=== PATIENT | female | born 1990 | race African-American/Black ===

== ENCOUNTER 2020-07-11 10:42 | Emergency (ER) | payer OTHER ==
[2020-07-11 11:30] LABS: BASO % 0.8 % (0-2.0); EOS % 1.1 % (0-4.5); HEMATOCRIT 39.4 % (32.4-45.2); HEMOGLOBIN 13.3 GM/dL (10.7-15.3); LYMPH % 25.7 % (8-40); MCH 28.1 pg (25.7-33.7); MCHC 33.7 g/dl (32.0-36.0); MEAN CELL VOLUME 83.5 fl (80-96); MEAN PLT VOLUME 8.3 fl (7.5-11.1); MONO % 6.6 % (3.8-10.2); NEUT % 65.8 % (42.8-82.8); PLATELET COUNT 280 K/MM3 (134-434); RBC 4.72 M/mm3 (3.60-5.2); RDW 13.3 % (11.6-15.6)
[2020-07-11 11:36] LABS: INR 1.01 (0.83-1.09); PROTHROMBIN TIME (PATIENT) 12.2 SEC (9.7-13.0)
[2020-07-11 11:39] LABS: ACTIVATED PTT 31.3 SECONDS (25.2-36.5)
[2020-07-11 11:43] LABS: ALBUMIN 3.5 g/dl (3.4-5.0); CALCIUM 8.8 mg/dL (8.5-10.1)
[2020-07-11 11:44] VITALS: TEMP 97.5; BMI 38.0
[2020-07-11 11:46] LABS: CREATININE 0.7 mg/dL (0.55-1.3)
[2020-07-11 11:48] LABS: BILIRUBIN,TOTAL 0.3 mg/dL (0.2-1); TOT PROT 7.4 g/dl (6.4-8.2)
[2020-07-11 12:11] LABS: EPI CELLS >36 /uL (0-25.1); HYALINE CASTS 1 /uL (0-3.1); PH,URINE 5.5 (5.0-8.0); URINE APPEARANCE CLOUDY; URINE BACTERIA 1314 /uL (0-1359); URINE BILIRUBIN NEGATIVE (NEGATIVE); URINE COLOR ORANGE; URINE GLUCOSE (UA) NEGATIVE (NEGATIVE); URINE KETONE NEGATIVE (NEGATIVE); URINE LEUK ESTERASE NEGATIVE (NEGATIVE); URINE NITRITE NEGATIVE (NEGATIVE); URINE PROTEIN TRACE (NEGATIVE); URINE RBC 6 /uL (0-23.9); URINE UROBILINOGEN 0.2 mg/dL (0.2-1.0); URINE WBC 19 /uL (0-25.8)
[2020-07-11] MEDS ORDERED: ACETAMINOPHEN 1000 MG/100 ML VIAL (NON FORMULARY) IVPB ONE (14:58)
[2020-07-11] MEDS ORDERED: ACETAMINOPHEN INJECTION 100 ML IVPB ONE (15:00)
[2020-07-11] MEDS ORDERED: KETOROLAC TROMETHAMINE 30 MG/1 ML VIAL IVPUSH ONE (16:12)
[2020-07-11] MEDS ORDERED: diazePAM 2 MG TABLET PO ONE (16:14)
[2020-07-11] MEDS ORDERED: KETOROLAC TROMETHAMINE 30 MG/1 ML VIAL ONE (16:19)
[2020-07-11] MEDS ORDERED: diazePAM 2 MG TABLET ONE (16:22)
[2020-07-11 17:24] VITALS: BP 133/84; PULSE 84
== END 2020-07-11 17:20 | disposition home or self-care (01) ==
LOC: JER 10:42
PROC: 3E0333Z Introduction of Anti-inflammatory into Peripheral Vein, Percutaneous Approach (ICD-10-PCS; principal; 2020-07-11)
PROC: 3E0333Z Introduction of Anti-inflammatory into Peripheral Vein, Percutaneous Approach (ICD-10-PCS; 2020-07-11)
DX: N83.202 Unspecified ovarian cyst, left side (principal); S39.012A Strain of muscle, fascia and tendon of lower back, initial encounter
CPT/HCPCS: 36415; 74176-TC; 76830-TC; 80053; 81003; 84703; 85025; 85610; 85730; 86850; 86900; 86901; 87086; 93005; 93010; 99285-25; J0131

== ENCOUNTER 2020-09-08 10:52 | Emergency (ER) | payer OTHER ==
[2020-09-08 11:15] VITALS: PULSE 95; BMI 39.0
[2020-09-08] MEDS ORDERED: morphine CARPU-JECT 4 MG/1 ML DISP.SYRIN IVPUSH ONE (11:27)
[2020-09-08] MEDS ORDERED: LACTATED RINGERS SOLUTION 1,000 ML IV STA (11:27)
[2020-09-08] MEDS ORDERED: ONDANSETRON 4 MG/2 ML VIAL IVPUSH ONE (11:27)
[2020-09-08] MEDS ORDERED: morphine SULFATE 4 MG/ML VIAL ONE (11:29)
[2020-09-08] MEDS ORDERED: ONDANSETRON 4 MG/2 ML VIAL ONE (11:34)
[2020-09-08 12:06] LABS: BASO % 0.4 % (0-2.0); EOS % 0.7 % (0-4.5); HEMATOCRIT 38.7 % (32.4-45.2); HEMOGLOBIN 12.8 GM/dL (10.7-15.3); LYMPH % 11.8 % (8-40); MCH 26.6 pg (25.7-33.7); MEAN CELL VOLUME 80.7 fl (80-96); MEAN PLT VOLUME 8.3 fl (7.5-11.1); MONO % 4.5 % (3.8-10.2); NEUT % 82.6 % (42.8-82.8); PLATELET COUNT 260 10^3/uL (134-434); RBC 4.79 M/mm3 (3.60-5.2); WHITE BLOOD COUNT 11.1 K/mm3 (4.0-10.0)
[2020-09-08 12:15] LABS: INR 0.93 (0.83-1.09); PROTHROMBIN TIME (PATIENT) 11.3 SEC (9.7-13.0)
[2020-09-08 12:17] LABS: ACTIVATED PTT 28.2 SECONDS (25.2-36.5)
[2020-09-08 12:26] LABS: ALBUMIN 3.5 g/dl (3.4-5.0); BLOOD UREA NITROGEN 16.2 mg/dL (7-18); CALCIUM 8.8 mg/dL (8.5-10.1)
[2020-09-08 12:29] LABS: CREATININE 0.8 mg/dL (0.55-1.3)
[2020-09-08 12:31] LABS: BILIRUBIN,TOTAL 0.3 mg/dL (0.2-1); TOT PROT 7.2 g/dl (6.4-8.2)
[2020-09-08 12:54] LABS: EPI CELLS >36 /uL (0-25.1); HYALINE CASTS 1 /uL (0-3.1); PH,URINE 5.5 (5.0-8.0); URINE APPEARANCE CLEAR; URINE BACTERIA 763 /uL (0-1359); URINE BILIRUBIN NEGATIVE (NEGATIVE); URINE COLOR YELLOW; URINE GLUCOSE (UA) NEGATIVE (NEGATIVE); URINE KETONE TRACE (NEGATIVE); URINE LEUK ESTERASE 1+ (NEGATIVE); URINE NITRITE NEGATIVE (NEGATIVE); URINE PROTEIN NEGATIVE (NEGATIVE); URINE RBC 5 /uL (0-23.9); URINE UROBILINOGEN 0.2 mg/dL (0.2-1.0); URINE WBC 66 /uL (0-25.8)
[2020-09-08] MEDS ORDERED: CEFTRIAXONE 1,000 MG in DEXTROSE 5%-WATER - 50 ML IVPB ONE (13:39)
[2020-09-08] MEDS ORDERED: CEFTRIAXONE 1 GM/50 ML BAG ONE (17:04)
[2020-09-08] MEDS ORDERED: KETOROLAC TROMETHAMINE 15 MG/ML VIAL IVPUSH ONE (17:52)
[2020-09-08] MEDS ORDERED: KETOROLAC TROMETHAMINE 15 MG/ML VIAL ONE (18:22)
[2020-09-08 18:36] VITALS: BP 117/66; TEMP 98.2
== END 2020-09-08 18:50 | disposition home or self-care (01) ==
LOC: JER 10:52
PROC: 3E03329 Introduction of Other Anti-infective into Peripheral Vein, Percutaneous Approach (ICD-10-PCS; principal; 2020-09-08)
PROC: 3E033GC Introduction of Other Therapeutic Substance into Peripheral Vein, Percutaneous Approach (ICD-10-PCS; 2020-09-08)
PROC: 3E0333Z Introduction of Anti-inflammatory into Peripheral Vein, Percutaneous Approach (ICD-10-PCS; 2020-09-08)
PROC: 3E033NZ Introduction of Analgesics, Hypnotics, Sedatives into Peripheral Vein, Percutaneous Approach (ICD-10-PCS; 2020-09-08)
PROC: 3E033GC Introduction of Other Therapeutic Substance into Peripheral Vein, Percutaneous Approach (ICD-10-PCS; 2020-09-08)
DX: N83.201 Unspecified ovarian cyst, right side (principal); K64.9 Unspecified hemorrhoids; N39.0 Urinary tract infection, site not specified
CPT/HCPCS: 36415; 74174-TC; 76830-TC; 80053; 81003; 82272; 83605; 83690; 84703; 85025; 85610; 85730; 86850; 86900; 86901; 87086; 93005; 93010; 99285-25; Q9967

== ENCOUNTER 2020-11-02 21:11 | Emergency (ER) | payer OTHER ==
[2020-11-02 21:39] VITALS: BP 145/90; PULSE 89; TEMP 98.4; BMI 33.4
[2020-11-02] MEDS ORDERED: AZITHROMYCIN 500 MG TABLET PO ONE (21:59)
[2020-11-02] MEDS ORDERED: AZITHROMYCIN 250 MG TABLET ONE (22:15)
== END 2020-11-02 22:53 | disposition home or self-care (01) ==
LOC: JER 21:11
DX: J18.9 Pneumonia, unspecified organism (principal); Z11.52 Encounter for screening for COVID-19
CPT/HCPCS: 71045-TC-FY; 99284-25; C9803; U0003; U0005

== ENCOUNTER 2020-11-08 21:01 | Emergency (ER) | payer OTHER ==
[2020-11-08 21:17] VITALS: BP 113/60; BMI 39.5
[2020-11-08] MEDS ORDERED: KETOROLAC TROMETHAMINE 30 MG/1 ML VIAL IM ONE (22:09)
[2020-11-08 22:33] VITALS: PULSE 78
[2020-11-08] MEDS ORDERED: KETOROLAC TROMETHAMINE 30 MG/1 ML VIAL ONE (22:34)
[2020-11-08 22:53] VITALS: TEMP 98
== END 2020-11-08 22:45 | disposition home or self-care (01) ==
LOC: JERFT 21:01 → JER 21:01
PROC: 3E0233Z Introduction of Anti-inflammatory into Muscle, Percutaneous Approach (ICD-10-PCS; principal; 2020-11-08)
DX: R07.9 Chest pain, unspecified (principal)
CPT/HCPCS: 71046-TC-FY; 93005; 93010; 99284-25

== ENCOUNTER 2021-03-20 06:01 | Emergency (ER) | payer OTHER ==
[2021-03-20 06:09] VITALS: BP 114/74; PULSE 83; TEMP 98.4; BMI 36.5
[2021-03-20] MEDS ORDERED: morphine CARPU-JECT 4 MG/1 ML DISP.SYRIN IVPUSH ONE (06:22)
[2021-03-20] MEDS ORDERED: ONDANSETRON 4 MG/2 ML VIAL IVPUSH ONE (06:22)
[2021-03-20] MEDS ORDERED: morphine SULFATE 4 MG/ML VIAL ONE (06:29)
[2021-03-20] MEDS ORDERED: ONDANSETRON 4 MG/2 ML VIAL ONE (06:29)
[2021-03-20 07:43] LABS: BASO % 0.5 % (0-2.0); HEMATOCRIT 37.9 % (32.4-45.2); HEMOGLOBIN 12.2 GM/dL (10.7-15.3); LYMPH % 22.4 % (8-40); MCH 25.8 pg (25.7-33.7); MCHC 32.2 g/dl (32.0-36.0); MEAN CELL VOLUME 80.2 fl (80-96); MEAN PLT VOLUME 7.9 fl (7.5-11.1); MONO % 6.1 % (3.8-10.2); PLATELET COUNT 317 10^3/uL (134-434); RBC 4.72 M/mm3 (3.60-5.2); RDW 15.1 % (11.6-15.6); WHITE BLOOD COUNT 9.9 K/mm3 (4.0-10.0)
[2021-03-20 07:50] LABS: INR 1.08 (0.83-1.09); PROTHROMBIN TIME (PATIENT) 12.4 SEC (9.7-13.0)
[2021-03-20 07:52] LABS: ACTIVATED PTT 30.6 SECONDS (25.2-36.5)
[2021-03-20 07:55] LABS: CALCIUM 8.9 mg/dL (8.5-10.1)
[2021-03-20 07:56] LABS: ALBUMIN 3.5 g/dl (3.4-5.0)
[2021-03-20 07:59] LABS: CREATININE 0.7 mg/dL (0.55-1.3)
[2021-03-20 08:00] LABS: BILIRUBIN,TOTAL 0.2 mg/dL (0.2-1)
[2021-03-20] MEDS ORDERED: KETOROLAC TROMETHAMINE 30 MG/1 ML VIAL IVPUSH ONE (08:44)
[2021-03-20] MEDS ORDERED: KETOROLAC TROMETHAMINE 30 MG/1 ML VIAL ONE (09:05)
[2021-03-20] MEDS ORDERED: SODIUM CHLORIDE 0.9% 500 ML INFUS.BAG IV ONE (09:42)
[2021-03-20] MEDS ORDERED: methylPREDNISolone NA SUCC 125 MG/2 ML VIAL IVPUSH ONE (09:50)
[2021-03-20] MEDS ORDERED: methylPREDNISolone NA SUCC 125 MG/2 ML VIAL ONE (10:08)
[2021-03-20 10:09] LABS: PH,URINE 6.5 (5.0-8.0); URINE APPEARANCE CLOUDY; URINE BILIRUBIN NEGATIVE (NEGATIVE); URINE COLOR YELLOW; URINE GLUCOSE (UA) NEGATIVE (NEGATIVE); URINE KETONE NEGATIVE (NEGATIVE); URINE LEUK ESTERASE NEGATIVE (NEGATIVE); URINE NITRITE NEGATIVE (NEGATIVE); URINE PROTEIN NEGATIVE (NEGATIVE); URINE UROBILINOGEN 0.2 mg/dL (0.2-1.0)
== END 2021-03-20 13:20 | disposition home or self-care (01) ==
LOC: JER 06:01
PROC: 3E033GC Introduction of Other Therapeutic Substance into Peripheral Vein, Percutaneous Approach (ICD-10-PCS; principal; 2021-03-20)
DX: R10.30 Lower abdominal pain, unspecified (principal)
CPT/HCPCS: 36415; 71045-TC-FY; 74177-TC; 76830-TC; 80053; 81003; 84703; 85025; 85610; 85730; 86850; 86900; 86901; 87086; 87491; 87591; 96374; 96375; 99285-25; C9803; U0003; U0005

== ENCOUNTER 2021-12-21 14:47 | Day surgery (SDC) | payer OTHER ==
[2021-12-21 15:37] VITALS: BMI 37.9
[2021-12-21 17:14] LABS: BASO % 0.4 % (0-2.0); EOS % 0.5 % (0-4.5); HEMATOCRIT 37.1 % (32.4-45.2); HEMOGLOBIN 12.5 GM/dL (10.7-15.3); LYMPH % 17.5 % (8-40); MCH 26.8 pg (25.7-33.7); MCHC 33.7 g/dl (32.0-36.0); MEAN CELL VOLUME 79.4 fl (80-96); MEAN PLT VOLUME 8.2 fl (7.5-11.1); MONO % 6.4 % (3.8-10.2); NEUT % 75.2 % (42.8-82.8); PLATELET COUNT 294 10^3/uL (134-434); RBC 4.67 M/mm3 (3.60-5.2); RDW 14.7 % (11.6-15.6); WHITE BLOOD COUNT 12.3 K/mm3 (4.0-10.0)
[2021-12-21 17:23] LABS: INR 1.09 (0.83-1.09); PROTHROMBIN TIME (PATIENT) 12.5 SEC (9.7-13.0)
[2021-12-21 17:36] LABS: CALCIUM 9.2 mg/dL (8.5-10.1)
[2021-12-21 17:40] LABS: CREATININE 0.5 mg/dL (0.55-1.3)
[2021-12-21 17:41] LABS: BILIRUBIN,TOTAL 0.2 mg/dL (0.2-1); TOT PROT 7.2 g/dl (6.4-8.2)
[2021-12-21] MEDS ORDERED: DEXTROSE 5%-LACTATED RINGERS 1,000 ML IV SCH (22:00)
[2021-12-21] MEDS: INDOMETHACIN 25 MG CAPSULE PO SCH (23:10)
[2021-12-22] MEDS: INDOMETHACIN 25 MG CAPSULE PO SCH (05:41)
[2021-12-22] MEDS ORDERED: CLINDAMYCIN 600MG PREMIX IVPB 1,200 MG/100 ML BAG IVPB ONE (09:02)
[2021-12-22] MEDS ORDERED: oxyCODONE HCL 5 MG TABLET PO PRN (10:41)
[2021-12-22] MEDS ORDERED: ONDANSETRON 4 MG/2 ML VIAL IVPUSH PRN (10:41)
[2021-12-22] MEDS ORDERED: LACTATED RINGERS SOLUTION 1,000 ML IV SCH (10:45)
[2021-12-22] MEDS ORDERED: MIDAZOLAM HCL 2 MG/2 ML SINGLE DOSE VIAL ONE (10:51)
[2021-12-22] MEDS ORDERED: ONDANSETRON 4 MG/2 ML VIAL ONE (11:32)
[2021-12-22] MEDS ORDERED: KETAMINE HCL 500 MG/10 ML VIAL ONE (11:42)
[2021-12-22] MEDS ORDERED: ACETAMINOPHEN 1000 MG/100 ML BAG IVPB ONE ×3 (12:26→12:30)
[2021-12-22] MEDS ORDERED: ACETAMINOPHEN INJECTION 100 ML IVPB ONE (12:29)
[2021-12-22 13:05] VITALS: RESP 17
[2021-12-22 13:48] VITALS: BP 111/63; PULSE 85
[2021-12-22 13:50] VITALS: TEMP 98.6
[2021-12-22] MEDS ORDERED: INDOMETHACIN 25 MG CAPSULE PO SCH ×2 (14:15)
== END 2021-12-22 19:32 | disposition home or self-care (01) ==
LOC: JER 14:47 → JASUSAT 16:17 → J3W 20:28 → JASUSAT 12-22 19:32
PROVIDERS: ATTEND Obstetrics & Gynecology Maternal & Fetal Medicine
PROC: 0UVC7ZZ Restriction of Cervix, Via Natural or Artificial Opening (ICD-10-PCS; principal; 2021-12-21)
DX: O34.32 Maternal care for cervical incompetence, second trimester (principal); Z3A.21 21 weeks gestation of pregnancy; O26.872 Cervical shortening, second trimester
CPT/HCPCS: 0241U-QW; 36415; 80053; 84703; 85025; 85610; 86850; 86900; 86901; 94760; 99285-25

== ENCOUNTER 2022-04-01 07:47 | Inpatient (IN) | payer OTHER ==
[2022-04-01] MEDS ORDERED: BETAMET ACET/BETAMET NA PH 30 MG/5 ML VIAL IM ONE (08:55)
[2022-04-01] MEDS ORDERED: BETAMET ACET/BETAMET NA PH 30 MG/5 ML VIAL ONE (09:03)
[2022-04-01 09:21] LABS: URINE APPEARANCE CLEAR; URINE BILIRUBIN NEGATIVE (NEGATIVE); URINE COLOR YELLOW; URINE GLUCOSE (UA) NEGATIVE (NEGATIVE); URINE KETONE NEGATIVE (NEGATIVE); URINE LEUK ESTERASE NEGATIVE (NEGATIVE); URINE NITRITE NEGATIVE (NEGATIVE); URINE PROTEIN NEGATIVE (NEGATIVE); URINE UROBILINOGEN 0.2 mg/dL (0.2-1.0)
[2022-04-01] MEDS ORDERED: SODIUM CHLORIDE 1,000 ML IV ONE (09:45)
[2022-04-01] MEDS ORDERED: TERBUTALINE SULFATE 1 MG/1 ML VIAL SQ ONE ×2 (09:51→09:57)
[2022-04-01] MEDS ORDERED: DEXTROSE 5%-LACTATED RINGERS 1,000 ML IV SCH (10:15)
[2022-04-01 10:35] VITALS: BMI 40.3
[2022-04-01 11:59] LABS: BASO % 0.4 % (0-2.0); EOS % 0.4 % (0-4.5); HEMATOCRIT 34.6 % (32.4-45.2); HEMOGLOBIN 11.5 GM/dL (10.7-15.3); LYMPH % 17.3 % (8-40); MCH 25.9 pg (25.7-33.7); MCHC 33.2 g/dl (32.0-36.0); MEAN CELL VOLUME 78.2 fl (80-96); MEAN PLT VOLUME 8.7 fl (7.5-11.1); MONO % 3.7 % (3.8-10.2); NEUT % 78.2 % (42.8-82.8); PLATELET COUNT 221 10^3/uL (134-434); RBC 4.42 M/mm3 (3.60-5.2); RDW 14.6 % (11.6-15.6); WHITE BLOOD COUNT 12.9 K/mm3 (4.0-10.0)
[2022-04-01 12:46] LABS: ACTIVATED PTT 28.2 SECONDS (25.2-36.5); INR 1.1 (0.83-1.09); PROTHROMBIN TIME (PATIENT) 12.7 SEC (9.7-13.0)
[2022-04-01 13:01] LABS: CALCIUM 8.9 mg/dL (8.5-10.1)
[2022-04-01 13:02] LABS: ALBUMIN 2.5 g/dl (3.4-5.0); BLOOD UREA NITROGEN 6.8 mg/dL (7-18)
[2022-04-01 13:05] LABS: CREATININE 0.5 mg/dL (0.55-1.3)
[2022-04-01 13:07] LABS: BILIRUBIN,TOTAL 0.2 mg/dL (0.2-1); TOT PROT 6.2 g/dl (6.4-8.2)
[2022-04-01] MEDS ORDERED: NIFEdipine 10 MG CAPSULE (FP) ONE (13:52)
[2022-04-01] MEDS: NIFEdipine 10 MG CAPSULE (FP) PO SCH ×2 (13:57→22:06)
[2022-04-01] MEDS: DEXTROSE 5%-LACTATED RINGERS 1,000 ML IV SCH ×2 (15:16→22:08)
[2022-04-02] MEDS ORDERED: BETAMET ACET/BETAMET NA PH 30 MG/5 ML VIAL ONE (07:28)
[2022-04-02 07:41] LABS: BASO % 0.2 % (0-2.0); HEMATOCRIT 30.1 % (32.4-45.2); HEMOGLOBIN 10.2 GM/dL (10.7-15.3); LYMPH % 13.6 % (8-40); MCH 26.7 pg (25.7-33.7); MCHC 33.9 g/dl (32.0-36.0); MEAN CELL VOLUME 78.7 fl (80-96); MEAN PLT VOLUME 8.4 fl (7.5-11.1); MONO % 6.2 % (3.8-10.2); PLATELET COUNT 208 10^3/uL (134-434); RBC 3.82 M/mm3 (3.60-5.2); RDW 14.8 % (11.6-15.6); WHITE BLOOD COUNT 15.2 K/mm3 (4.0-10.0)
[2022-04-02] MEDS: DEXTROSE 5%-LACTATED RINGERS 1,000 ML IV SCH ×2 (08:00→14:34)
[2022-04-02] MEDS ORDERED: CITRIC ACID/SODIUM CITRATE 30 ML UNIT-DOSE CUP PO ONE (08:33)
[2022-04-02] MEDS ORDERED: morphine SULFATE/PF 1 MG/2 ML (2cc Syringe - QUVA) EP ONE (09:02)
[2022-04-02] MEDS ORDERED: ONDANSETRON 4 MG/2 ML VIAL IVPUSH PRN (09:02)
[2022-04-02] MEDS ORDERED: ACETAMINOPHEN 325 MG TABLET (FP) PO PRN ×2 (09:02→13:05)
[2022-04-02] MEDS ORDERED: morphine SULFATE (PF) 1 MG/2 ML SYRINGE ONE (09:07)
[2022-04-02] MEDS ORDERED: ceFAZolin SODIUM 1 GM VIAL ONE (09:08)
[2022-04-02] MEDS ORDERED: SODIUM CHLORIDE 0.9% P/F 10 ML VIAL IJ ONE (09:08)
[2022-04-02] MEDS ORDERED: TRIAMCINOLONE ACETONIDE 40 MG/ML 10 ML VIAL SQ ONE (09:09)
[2022-04-02] MEDS ORDERED: PHENYLEPHRINE HCL 10 MG/1 ML SINGLE DOSE VIAL ONE (09:21)
[2022-04-02] MEDS ORDERED: OXYTOCIN 10 UNITS/ML VIAL ONE ×2 (09:48→11:42)
[2022-04-02] MEDS ORDERED: PROPOFOL 20 ML ONE (10:08)
[2022-04-02] MEDS ORDERED: MIDAZOLAM HCL 2 MG/2 ML SINGLE DOSE VIAL ONE ×2 (10:36→10:48)
[2022-04-02] MEDS ORDERED: ONDANSETRON 4 MG/2 ML VIAL ONE (10:36)
[2022-04-02] MEDS ORDERED: FENTANYL CITRATE/PF 50 MCG/ML VIAL ONE ×3 (10:37→11:19)
[2022-04-02 11:02] LABS: CORD HCO3 22.1 mmHg (20-29); CORD PCO2 62.9 mmHg (30-78); CORD pH 7.164 (7.14-7.44)
[2022-04-02 11:05] LABS: CORD BASE EXCESS -6.9 mmol/L (0-2); CORD HCO3 19.1 mmHg (20-29); CORD PCO2 40.1 mmHg (30-78); CORD pH 7.295 (7.14-7.44)
[2022-04-02] MEDS ORDERED: METOPROLOL TARTRATE 5 MG/5 ML VIAL ONE (11:22)
[2022-04-02] MEDS ORDERED: KETAMINE HCL 500 MG/10 ML VIAL ONE (11:23)
[2022-04-02] MEDS: OXYTOCIN 20 UNITS in 0.9% NS 20 UNIT/1,000 ML INFUS.BAG IV SCH ×2 (14:00→22:34)
[2022-04-02] MEDS ORDERED: OXYTOCIN 20 UNITS in 0.9% NS 20 UNIT/1,000 ML INFUS.BAG IV ONE (14:03)
[2022-04-03 08:30] LABS: HEMATOCRIT 29.6 % (32.4-45.2); HEMOGLOBIN 10.1 GM/dL (10.7-15.3); MCH 26.4 pg (25.7-33.7); MEAN CELL VOLUME 77.9 fl (80-96); MEAN PLT VOLUME 8.4 fl (7.5-11.1); PLATELET COUNT 249 10^3/uL (134-434); RBC 3.81 M/mm3 (3.60-5.2); RDW 14.9 % (11.6-15.6); WHITE BLOOD COUNT 21.7 K/mm3 (4.0-10.0)
[2022-04-03 09:12] LABS: ANISOCYTOSIS 0; MACROCYTOSIS 0
[2022-04-03] MEDS: SIMETHICONE 80 MG TAB.CHEW (FP) PO PRN (09:12)
[2022-04-03] MEDS: FERROUS SO4 325 MG TABLET (FP) PO SCH ×2 (09:12→21:44)
[2022-04-03] MEDS: PRENATAL VITAMINS W/ FOLIC ACID TABLET (FP) PO SCH (09:12)
[2022-04-03] MEDS: oxyCODONE HCL 5 MG TABLET PO PRN (18:12)
[2022-04-03] MEDS ORDERED: diphenhydrAMINE HCL 25 MG CAPSULE (FP) PO ONE (21:47)
[2022-04-04] MEDS: oxyCODONE HCL 5 MG TABLET PO PRN (03:55)
[2022-04-04] MEDS: SIMETHICONE 80 MG TAB.CHEW (FP) PO PRN (04:01)
[2022-04-04] MEDS: FERROUS SO4 325 MG TABLET (FP) PO SCH ×2 (09:33→22:08)
[2022-04-04] MEDS: IBUPROFEN 600 MG TABLET (FP) PO PRN ×2 (09:33→22:08)
[2022-04-04] MEDS: PRENATAL VITAMINS W/ FOLIC ACID TABLET (FP) PO SCH (09:33)
[2022-04-04] MEDS: CEPHALEXIN MONOHYDRATE 500 MG CAPSULE (UD) PO SCH ×2 (10:34→22:08)
[2022-04-04] MEDS: DOCUSATE SODIUM 100 MG CAPSULE (FP) PO SCH ×2 (13:23→22:08)
[2022-04-04 23:25] VITALS: RESP 18
[2022-04-05] MEDS: IBUPROFEN 600 MG TABLET (FP) PO PRN ×2 (05:43→12:36)
[2022-04-05] MEDS: DOCUSATE SODIUM 100 MG CAPSULE (FP) PO SCH (05:43)
[2022-04-05 08:44] LABS: BASO % 0.2 % (0-2.0); EOS % 0.2 % (0-4.5); HEMATOCRIT 25.9 % (32.4-45.2); HEMOGLOBIN 8.6 GM/dL (10.7-15.3); LYMPH % 18.8 % (8-40); MCH 26.4 pg (25.7-33.7); MCHC 33.4 g/dl (32.0-36.0); MEAN CELL VOLUME 78.9 fl (80-96); MONO % 8.6 % (3.8-10.2); NEUT % 72.2 % (42.8-82.8); PLATELET COUNT 246 10^3/uL (134-434); RBC 3.28 M/mm3 (3.60-5.2); RDW 14.8 % (11.6-15.6); WHITE BLOOD COUNT 14.8 K/mm3 (4.0-10.0)
[2022-04-05] MEDS: PRENATAL VITAMINS W/ FOLIC ACID TABLET (FP) PO SCH (09:10)
[2022-04-05] MEDS: FERROUS SO4 325 MG TABLET (FP) PO SCH (09:10)
[2022-04-05 09:18] VITALS: BP 121/75; PULSE 103; TEMP 97.8
[2022-04-05] MEDS: CEPHALEXIN MONOHYDRATE 500 MG CAPSULE (UD) PO SCH (12:36)
[2022-04-06] MEDS ORDERED: PATIENT'S OWN MEDICATION (NON-FORMULARY) (Prenatal Vitamins (Sjr) - [Prenatal Vitamins (Sj PO SCH (10:00)
== END 2022-04-05 14:15 | disposition home or self-care (01) | DRG 540 ==
LOC: JDEL 07:47 → JLDR 09:40 → J3W 15:07 → JLDR 04-02 07:36 → J3W 04-02 14:38
PROVIDERS: ADMIT Obstetrics & Gynecology Maternal & Fetal Medicine; ATTEND Obstetrics & Gynecology Maternal & Fetal Medicine
PROC: 10D00Z1 Extraction of Products of Conception, Low, Open Approach (ICD-10-PCS; principal; 2022-04-02)
PROC: 0DNW0ZZ Release Peritoneum, Open Approach (ICD-10-PCS; 2022-04-02)
DX: O34.219 Maternal care for unspecified type scar from previous cesarean delivery (principal); O34.33 Maternal care for cervical incompetence, third trimester; O60.14X0 Preterm labor third trimester with preterm delivery third trimester, not applicable or unspecified; O10.92 Unspecified pre-existing hypertension complicating childbirth; O99.824 Streptococcus B carrier state complicating childbirth; O99.214 Obesity complicating childbirth; E66.01 Morbid (severe) obesity due to excess calories; N73.6 Female pelvic peritoneal adhesions (postinfective); Z3A.36 36 weeks gestation of pregnancy; Z37.0 Single live birth
CPT/HCPCS: 36415; 36600; 59025; 80053; 81003; 82803; 82962; 85025; 85610; 85730; 86780; 86850; 86900; 86901; 86922; 88304-TC; 88307-TC; 96372; C9803-CS; U0003; U0005